=== PATIENT | female | born 1955 | race Caucasian/White ===

== ENCOUNTER 2019-06-05 13:14 | Emergency (ER) | payer SELFPAY ==
[~2019-06-05] VITALS: Ht 154.9 cm; Wt 69.9 kg
[~2019-06-05 13:14] MED LIST: XANAX0.5 MG PO; ZOLOFT50 MG PO
--- OUTSIDE RECORDS SUMMARY | 2019-06-05 13:17 | XMS REPORT | Summary of Care ---
Author Author Munira Buchanan M.A. Organization Unknown Address [facility] Phone Unavailable Care Team Providers Care Header Set Up Operator Name Role Phone KIM RÍOS Unavailable Unavailable Munira Buchanan M.A. Unavailable Unavailable KASH MCGHEE [place], KARTIK CRAMER Unavailable Unavailable KASH Newton, KARTIK Cortes Unavailable Unavailable Unavailable Functional Status Name Dates Details Functional status health issues are not documented Status: Name Dates Details Cognitive status health issues are not documented Status: Problems Name Dates Details Need for vaccination (V05.9, Z23) Status: Active Urinary tract infection (599.0, N39.0) Status: Active Back strain (847.9, S39.012A) Status: Active Nonspecific finding on examination of urine (791.9, R82.90) Status: Active Encounter for routine gynecological examination (V72.31, Z01.419) Status: Active Influenza (487.1, J11.1) Status: Active Fever (780.60, R50.9) Status: Active Pharyngitis (462, J02.9) Status: Active Encounter for repeat Pap smear due to previous insuff cervical cells (795.08, R87.615) Status: Active Visit for screening mammogram (V76.12, Z12.31) Status: Active Colon cancer screening (V76.51, Z12.11) Status: Active Flu vaccine need (V04.81, Z23) Status: Active Abdominal pain (789.00, R10.9) Status: Active Constipation (564.00, K59.00) Status: Active Fatigue (780.79, R53.83) Status: Active Anxiety (300.00, F41.9) Status: Active Encounter for screening for malignant neoplasm of colon (V76.51, Z12.11) Status: Active Atrophic vaginitis (627.3, N95.2) Status: Active Pain of right upper extremity (729.5, M79.601) Status: Active Postmenopausal atrophic vaginitis (627.3, N95.2) Status: Active Influenza vaccine refused (V64.06, Z28.21) Status: Active BMI 29.0-29.9,adult (V85.25, Z68.29) Status: Active 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 * Refills: 0 Active Allergies and Adverse Reactions Name Dates Details No Known Drug Allergies (Allergy) Status: Active Past Medical History Name Dates Details Need for vaccination (V05.9, Z23) Status: Active History of Nonspecific finding on examination of urine (791.9, R82.90) Status: Resolved History of pharyngitis (V12.69, Z87.09) Status: Resolved History of Visit for screening mammogram (V76.12, Z12.31) Status: Resolved Procedures Procedure Dates Details History of Section Completed Immunization Name Dates Details Fluzone INJ Lot #: [id number] on: 12-Jul-2013 Fluzone Quadrivalent Intramuscular Suspension Lot #: [id number] on: 16-Sep-2015 Fluzone Quadrivalent 0.5 ML Intramuscular Suspension Lot #: [id number] on: 19-Aug-2016 Fluzone Quadrivalent 0.5 ML Intramuscular Suspension on: 29-Apr-2017 Tdap on: 29-Apr-2017 Family History Name Dates Details Family history of Cirrhosis Comments: Family History Status: Active Family history of Sarcoma (171.9, C49.9) Comments: Other Status: Active Name Dates Details Family history of Prostate Cancer (V16.42) Status: Active Name Dates Details Family history of type 2 diabetes mellitus (V18.0, Z83.3) Status: Active Family history of Crohn's disease (V18.59, Z83.79) Status: Active Social History Name Dates Details - Status: Name Dates Details Never smoker Vital Signs Date Test Result Details :56 Physical Findings 5 Status: Comments: PHQ-9 Adult Depression Screening [id number] BP Systolic 124 mm[Hg] Status: Comments: Location: E; Position: Sitting BP Diastolic 84 mm[Hg] Status: Comments: Location: LUE; Position: Sitting Height 65 in Status: Weight 176.375 lb Status: Body Mass Index Calculated 29.35 kg/m2 Status: Body Surface Area Calculated 1.88 m2 Status: Temperature 97.7 f Status: Comments: Method: Temporal Respiration Rate 16 /min Status: Heart Rate 77 /min Status: Results Date Description Value Details :47 [QLH] CMP W/EGFR Sodium Level 141 {mEq/l} Range: 135-145 Potassium Level 4.0 {mEq/l} Range: 3.5-5.1 Chloride Level 105 {mEq/l} Range: 95-109 Carbon Dioxide 29 {mEq/l} Range: 24-32 AGAP 11.0 {mEq/l} Range: 10.0-20.0 Glucose Lvl 91 mg/dl Range: 70-99 Comments: Adult reference range values reflect the clinical guidelinesof the [place] [employer]. Creatinine Lvl 0.80 mg/dl Range: 0.50-1.40 Blood Urea Nitrogen 11 mg/dl Range: 7-22 BUN/Creatinine Ratio 14 Range: 6-25 Total Protein 7.4 g/dl Range: 6.4-8.4 Albumin Lvl 4.1 g/dl Range: 3.5-5.0 Globulin 3.3 g/dl Range: 2.7-4.2 A/G Ratio 1.2 Range: 0.7-1.6 Calcium Level Total 9.3 mg/dl Range: 8.5-10.5 ALT 98 u/l (Above high threshold) Range: 0-65 AST 53 u/l (Above high threshold) Range: 0-37 Bili Total 0.6 mg/dl Range: 0.2-1.3 Alk Phos 108 u/l Range: 39-136 Comments: The pediatric reference ranges for this test represent a CLSI- basedtransference of the CALIPER database of pediatric reference intervals to the[facility] [place] analyzer (Clinical Biochemistry 46 (2013): 7174-8565). [facility] has not internally validated these referenceranges and therefore they should be used only in the context of a thoroughclinical assessment. eGFR 79 {ML/MIN/1.7} Comments: The eGFR is calculated using the CKD-EPI formula. In most young, healthyindividuals the eGFR will be >90 mL/min/1.73m2. The eGFR declines with age. AneGFR of 60-89 may be normal in some populations, particularly the elderly, forwhom the CKD-EPI formula has not been extensively validated. Use of the eGFR isnot recommended in the following populations:Individuals with unstable creatinine concentrations, including patients and those with serious co-morbid conditions.Patients with extremes in muscle mass or diet.The data above are obtained from the National Kidney Disease Education Program(NKDEP) which additionally recommends that when the eGFR is used in patientswith extremes of body mass index for purposes of drug dosing, the eGFR shouldbe multiplied by the estimated BMI. [id number] [[facility]] LIPID PANEL Chol 246 mg/dl (Above high threshold) Range: <=199 Trig 235 mg/dl (Above high threshold) Range: <=149 HDL Cholesterol 57 mg/dl (Below low threshold) Range: >=61 LDL 142 mg/dl (Above high threshold) Range: <=99 CHD Risk 4.32 Range: 3.90-5.80 VLDL 47 [id number]-[id number]:47 [[facility]] TSH, 3RD GENERATION TSH 3.130 {uIU/ml} Range: 0.360-3.740 Plan of Care Name Dates Details Planned Observations Planned Goals not documented Instructions Name Dates Details Instructions not documented Encounters Appointment; KIM MITCHELL P.A. Encounter Diagnosis: Problem not documented On: 07-Sep-2017 10:15 Appointment; KIM MITCHELL P.A. Encounter Diagnosis: Problem not documented On: 28-Feb-2018 10:30 Appointment; KIM MITCHELL P.A. Encounter Diagnosis: Problem not documented On: 29-Sep-2018 9:15 Appointment; KIM MITCHELL P.A. Encounter Diagnosis: Problem not documented On: 30-Mar-2019 11:00
--- OUTSIDE RECORDS SUMMARY | 2019-06-05 13:17 | XMS REPORT ---
Author Author [facility] Address Unknown Phone Unavailable Care Team Providers Care Caddie Name Role Phone Unavailable Unavailable Problems This patient has no known problems. Allergies, Adverse Reactions, Alerts This patient has no known allergies or adverse reactions. Medications This patient has no known medications. Encounters Start Date/Time End Date/Time Encounter Type Admission Type Attending [facility] Facility Care Department Encounter ID 2018-04-21 12:16:53 2018-04-21 12:16:53 Outpatient [facility] [id number] 2018-04-21 11:04:00 2018-04-21 11:04:00 Outpatient [facility] [id number] 2018-04-19 00:00:00 2018-04-19 00:00:00 Outpatient [facility] [id number] 2018-04-14 09:07:43 2018-04-14 09:07:43 Outpatient [facility] [id number] 2018-04-12 00:00:00 2018-04-12 00:00:00 Outpatient [facility] [id number] 2018-03-29 15:23:47 2018-03-29 15:23:47 Outpatient [facility] [id number] 2017-09-14 00:00:00 2017-09-14 00:00:00 Outpatient [facility] [id number] 2017-09-06 00:00:00 2017-09-06 00:00:00 Outpatient [facility] [id number] 2017-08-10 08:49:42 2017-08-10 08:49:42 Outpatient [facility] [id number] 2017-08-08 13:30:01 2017-08-08 13:30:01 Outpatient [facility] [id number]
--- NOTE | 2019-06-05 13:55 | NUR ---
DR VEGA IN TRIAGE TO EVALUATE PATIENT
[2019-06-05] MEDS ORDERED: DIAZEPAM 5 MG TAB PO PRN (14:00)
[2019-06-05] MEDS ORDERED: KETOROLAC TROMETHAMINE 60 MG/2 ML VIAL IM NR (14:00)
[2019-06-05] MEDS ORDERED: ROBAXIN-750750 MG PO (16:10)
[2019-06-05] MEDS ORDERED: ULTRAM50 MG PO (16:10)
--- NOTE | 2019-06-05 16:20 | Diagnostic Imaging Report ---
Exam: Bilateral shoulder series Clinical History: Shoulder pain Findings: There is no evidence of acute fracture or malalignment. The articular joints are well-preserved. The soft tissue is unremarkable. Impression: No radiographic evidence of acute osseous injury. Signed by: Dr. Broderick Rivas MD on 06/05/2019 4:16 PM
[2019-06-05 16:31] VITALS: BP 151/80
== END 2019-06-05 16:39 | disposition home or self-care (01) ==
LOC: ER 13:14
DX: M25.512 Pain in left shoulder (principal); M25.511 Pain in right shoulder; S46.012A Strain of muscle(s) and tendon(s) of the rotator cuff of left shoulder, initial encounter; S46.011A Strain of muscle(s) and tendon(s) of the rotator cuff of right shoulder, initial encounter; V43.52XA Car driver injured in collision with other type car in traffic accident, initial encounter; Y92.488 Other paved roadways as the place of occurrence of the external cause
CPT/HCPCS: 73030; 99283; J1885